=== PATIENT | female | born 1935 | race Caucasian/White ===

== ENCOUNTER → 2016-12-16 14:54 | Outpatient (CLI) | payer MEDICARE, OTHER ==
[2011-12-09 07:52] VITALS: BMI 26.7
== END | disposition home or self-care (01) ==
LOC: D.MRI 14:54
DX: M25.562 Pain in left knee (principal)

== ENCOUNTER → 2018-11-15 16:42 | Outpatient (CLI) | payer MEDICARE, OTHER ==
[2011-12-09 07:52] VITALS: BMI 26.7
[2018-11-15 17:03] LABS: CHOL - HDL RATIO 4.9 ratio (2.3-4.1); LDL-HDL RATIO 2.8 ratio (1.5-3.5)
== END | disposition home or self-care (01) ==
LOC: D.LABREF 16:42
PROVIDERS: ATTEND Internal Medicine Interventional Cardiology
DX: I25.10 Atherosclerotic heart disease of native coronary artery without angina pectoris (principal)

== ENCOUNTER → 2019-09-17 18:48 | Outpatient (CLI) | payer MEDICARE, OTHER ==
[2011-12-09 07:52] VITALS: BMI 26.7
[2019-09-17 19:17] LABS: CHOL - HDL RATIO 5.8 ratio (2.3-4.1); LDL-HDL RATIO 3.6 ratio (1.5-3.5)
== END | disposition home or self-care (01) ==
LOC: D.LABREF 18:48
PROVIDERS: ATTEND Nurse Practitioner Adult Health
DX: I25.10 Atherosclerotic heart disease of native coronary artery without angina pectoris (principal); E78.5 Hyperlipidemia, unspecified

== ENCOUNTER → 2019-11-20 19:46 | Outpatient (CLI) | payer MEDICARE, OTHER ==
[2011-12-09 07:52] VITALS: BMI 26.7
[2019-11-20 20:38] LABS: CHOL - HDL RATIO 3.2 ratio (2.3-4.1); LDL-HDL RATIO 1.3 ratio (1.5-3.5)
== END | disposition home or self-care (01) ==
LOC: D.LABREF 19:46
PROVIDERS: ATTEND Internal Medicine Cardiovascular Disease
DX: I25.10 Atherosclerotic heart disease of native coronary artery without angina pectoris (principal); E78.5 Hyperlipidemia, unspecified